=== PATIENT | female | born 1985 | race Caucasian/White ===

== ENCOUNTER 2017-06-19 05:31 | Emergency (ER) | payer MEDICAID ==
[2017-06-19 05:51] VITALS: BP 103/72; PULSE 76; RESP 18; TEMP 98.4; O2SAT 100
--- NOTE | 2017-06-19 06:12 | C.PDOC ---
History Of Present Illness 32 year old female presents to the ED with complaints of upper back and neck pain for one day. Patient reports a piece ceiling fell and hit her on upper back at work 3 d ago. Patient was seen in [facility] yesterday and had X-Rays and CTs performed that were negative. Patient has been taking Motrin 6000 mg however pain persists. Patient denies head injury, LOC, weakness, numbness, or other complaints at this time. Time Seen by Provider: 06/19/17 05:56 Chief Complaint (Nursing): Back Pain History Per: Patient History/Exam Limitations: no limitations Onset/Duration Of Symptoms: Days (1 day ) Current Symptoms Are (Timing): Still Present Quality Of Discomfort: "Pain" Previous Symptoms: None Associated Symptoms: None Exacerbating Factor(s): Nothing Recent travel outside of the [place]: No Additional History Per: Prior Records Past Medical History Reviewed: Historical Data, Nursing Documentation, Vital Signs Vital Signs: Last Vital Signs Temp 98.4 F 06/19/17 05:47 Pulse 76 06/19/17 05:47 Resp 18 06/19/17 05:47 BP 103/72 06/19/17 05:47 Pulse Ox 100 06/20/17 02:37 Family History: States: Unknown Family Hx - Social History Hx Alcohol Use: No Hx Substance Use: No - Immunization History Hx Tetanus Toxoid Vaccination: No Hx Influenza Vaccination: No Hx Pneumococcal Vaccination: No Review Of Systems Constitutional: Negative for: Fever Cardiovascular: Negative for: Chest Pain, Palpitations Respiratory: Negative for: Cough, Shortness of Breath Gastrointestinal: Negative for: Nausea, Vomiting, Abdominal Pain Musculoskeletal: Positive for: Neck Pain Neurological: Negative for: Weakness, Numbness Physical Exam - Physical Exam Appears: Non-toxic, No Acute Distress Skin: Warm, Dry, No Rash Head: Atraumatic, Normacephalic, No Tenderness Eye(s): bilateral: Normal Inspection, PERRL, EOMI Oral Mucosa: Moist Neck: No Midline Cervical Tenderness, Paracervical Tenderness (minimal), Supple Chest: Symmetrical, No Deformity, No Tenderness Cardiovascular: Rhythm Regular, No Murmur Respiratory: No Rales, No Rhonchi, No Wheezing, Other (clear to auscultation bilaterally ) Gastrointestinal/Abdominal: Soft, No Tenderness Back: Normal Inspection, No CVA Tenderness, Muscle Spasm (upper back) Extremity: Normal ROM, No Tenderness Neurological/Psych: Oriented x3 Gait: Steady ED Course And Treatment O2 Sat by Pulse Oximetry: 100 (RA) Pulse Ox Interpretation: Normal Medical Decision Making Medical Decision Making: Patient was given Flexeril and Motrin. 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 - Scribe Statement The provider has reviewed the documentation as recorded by the Scribe Mahi Syed All medical record entries made by the Janetteibjuno were at my direction and personally dictated by me. I have reviewed the chart and agree that the record accurately reflects my personal performance of the history, physical exam, medical decision making, and the department course for this patient. I have also personally directed, reviewed, and agree with the discharge instructions and disposition.
== END 2017-06-19 06:39 | disposition home or self-care (01) ==
LOC: SUPCPDRO 05:31 → C.ER 05:31
DX: M54.89 Other dorsalgia (principal)

== ENCOUNTER 2018-08-08 09:40 | Emergency (ER) | payer MEDICAID ==
[2018-08-08 09:58] VITALS: BMI 24.7
[2018-08-08 10:00] VITALS: RESP 18
[2018-08-08 10:25] LABS: HCG,QUALITATIVE URINE NEGATIVE (NEGATIVE)
[2018-08-08 10:32] LABS: SQUAMOUS EPITHIAL 3 /hpf (0-5); URINE BACTERIA OCC (<OCC); URINE BILIRUBIN NEGATIVE (NEGATIVE); URINE BLOOD NEGATIVE (NEGATIVE); URINE CLARITY Hazy (Clear); URINE COLOR Yellow (YELLOW); URINE GLUCOSE (UA) NORMAL (Normal); URINE LEUKOCYTE ESTERASE TRACE Leu/uL (Negative); URINE PROTEIN NEGATIVE (NEGATIVE); URINE UROBILINOGEN NORMAL mg/dL (0.2-1.0)
--- NOTE | 2018-08-08 10:40 | C.PDOC ---
History Of Present Illness 33 year old female presents to the ED for evaluation of dysuria, lower back, suprapubic pain and nausea which began two weeks ago. Patient denies fever, chills, vomiting, diarrhea, extremity numbness/weakness. Time Seen by Provider: 08/08/18 10:15 Chief Complaint (Nursing): Female Genitourinary History Per: Patient History/Exam Limitations: no limitations Onset/Duration Of Symptoms: Other (two weeks ) Current Symptoms Are (Timing): Still Present Quality Of Discomfort: "Pain" Associated Symptoms: Nausea, Back Pain (lower), Urinary Symptoms (dysuria ). denies: Fever, Chills, Diarrhea Additional History Per: Patient Abnormal Vaginal Bleeding: No Past Medical History Reviewed: Historical Data, Nursing Documentation, Vital Signs Vital Signs: Last Vital Signs Temp 97.9 F 08/08/18 09:57 Pulse 91 H 08/08/18 09:57 Resp 18 08/08/18 09:57 BP 112/60 08/08/18 09:57 Pulse Ox 100 08/08/18 09:57 - Medical History PMH: No Chronic Diseases Surgical History: No Surg Hx Family History: States: Unknown Family Hx - Social History Hx Alcohol Use: No Hx Substance Use: No - Immunization History Hx Tetanus Toxoid Vaccination: No Hx Influenza Vaccination: No Hx Pneumococcal Vaccination: No Review Of Systems Constitutional: Negative for: Fever, Chills Gastrointestinal: Positive for: Nausea, Abdominal Pain (suprapubic ). Negative for: Diarrhea Genitourinary: Positive for: Dysuria Musculoskeletal: Positive for: Back Pain (lower) Neurological: Negative for: Weakness, Numbness Physical Exam - Physical Exam Appears: Non-toxic, No Acute Distress Skin: Normal Color, Warm, Dry Head: Atraumatic, Normacephalic Eye(s): bilateral: Normal Inspection Oral Mucosa: Moist Neck: Supple Chest: Symmetrical, No Deformity, No Tenderness Cardiovascular: Rhythm Regular, No Murmur Respiratory: Normal Breath Sounds, No Rales, No Rhonchi, No Wheezing Gastrointestinal/Abdominal: Soft, Tenderness (minimal, suprapubic ), No Guarding, No Rebound Back: CVA Tenderness (minimal, bilaterally) Extremity: Normal ROM, Capillary Refill (less than 2 seconds ) Neurological/Psych: Oriented x3, Normal Speech, Normal Cognition ED Course And Treatment - Laboratory Results Lab Results: Urine Color Yellow (YELLOW) 08/08/18 10:14 Urine Clarity Hazy (Clear) 08/08/18 10:14 Urine pH 5.0 (5.0-8.0) 08/08/18 10:14 Ur Specific Butler 1.018 (1.003-1.030) 08/08/18 10:14 Urine Protein Negative mg/dL (NEGATIVE) 08/08/18 10:14 Urine Glucose (UA) Normal mg/dL (Normal) 08/08/18 10:14 Urine Ketones Negative mg/dL (NEGATIVE) 08/08/18 10:14 Urine Blood Negative (NEGATIVE) 08/08/18 10:14 Urine Nitrate Negative (NEGATIVE) 08/08/18 10:14 Urine Bilirubin Negative (NEGATIVE) 08/08/18 10:14 Urine Urobilinogen Normal mg/dL (0.2-1.0) 08/08/18 10:14 Ur Leukocyte Esterase Trace Trish/uL (Negative) 08/08/18 10:14 Urine WBC (Auto) 1 /hpf (0-5) 08/08/18 10:14 Urine RBC (Auto) 1 /hpf (0-3) 08/08/18 10:14 Ur Squamous Epith Cells 3 /hpf (0-5) 08/08/18 10:14 Urine Bacteria Occ (<OCC) H 08/08/18 10:14 Urine HCG, Qual Negative (NEGATIVE) 08/08/18 10:14 Urine HCG, Qual Negative (NEGATIVE) 08/08/18 10:14 O2 Sat by Pulse Oximetry: 100 (on RA) Pulse Ox Interpretation: Normal Medical Decision Making Medical Decision Making: Impression: 33 year old female with dysuria, lower back pain, suprapubic pain, nausea Plan: * urinalysis * reassess and disposition Progress: Urinalysis ordered and reviewed. Results discussed with patient. Advised tylenol/motrin for pain. Will write Rx for zofran for nausea. Return to the ED for any new or worsening symptoms. Otherwise follow up as outpatient. Disposition - Disposition Disposition: HOME/ ROUTINE Disposition Time: 12:08 Condition: STABLE Additional Instructions: LENA PIPER, thank you for letting us take care of you today. Your provider was Ligia Grissom MD and you were treated for BACK PAIN. The emergency medical care you received today was directed at your acute symptoms. If you were prescribed any medication, please fill it and take as directed. It may take several days for your symptoms to resolve. Return to the Emergency Department if your symptoms worsen, do not improve, or if you have any other problems. Please contact your doctor or call one of the physicians/clinics you have been referred to that are listed on the Patient Visit Information form that is included in your discharge packet. Bring any paperwork you were given at discharge with you along with any medications you are taking to your follow up visit. Our treatment cannot replace ongoing medical care by a primary care provider outside of the emergency department. Thank you for allowing the [facility] team to be part of your care today. If you had an X-Ray or CT scan: A Radiologist will review the ED reading if any change in treatment is needed we will contact you. If you had a blood, urine, or wound culture: It will take several days for the results, if any change in treatment is needed we will contact you. If you had an STI test: It will take 48 hours for the results. Please call after 1 week if you have not heard back. Prescriptions: Ondansetron ODT [Zofran ODT] 4 mg PO Q8H PRN #10 odt PRN Reason: Nausea/Vomiting Instructions: Dysuria, Adult (DC), Nausea and Vomiting, Adult (DC) Forms: [employer] (Serbian) - Clinical Impression Clinical Impression: Nausea, Dysuria - Scribe Statement The provider has reviewed the documentation as recorded by the Scribe (Linda Howard) Provider Attestation: All medical record entries made by the Scribe were at my direction and personally dictated by me. I have reviewed the chart and agree that the record accurately reflects my personal performance of the history, physical exam, medical decision making, and the department course for this patient. I have also personally directed, reviewed, and agree with the discharge instructions and disposition.
[2018-08-08 11:47] VITALS: BP 104/63; PULSE 77; TEMP 98.2
[2018-08-08 12:08] VITALS: O2SAT 100
== END 2018-08-08 12:24 | disposition home or self-care (01) ==
LOC: C.ER 09:40
DX: R11.0 Nausea (principal); R30.0 Dysuria